=== PATIENT | female | born 1985 | race Caucasian/White ===

== ENCOUNTER 2017-10-26 06:52 | Inpatient (IN) | payer BC, MEDICAID ==
[2017-10-26] MEDS ORDERED: Albuterol-Ipratrop 3 mg / 0.5 (3 ml) UD ONE (07:36)
[2017-10-26] MEDS ORDERED: Albuterol-Ipratrop 3 mg / 0.5 (3 ml) UD INH STA (07:37)
[2017-10-26] MEDS ORDERED: Sodium Chloride 0.9% 1,000 ML IV STA (07:38)
--- NOTE | 2017-10-26 07:39 | ED PDOC ---
HPI: CCC, URI, Sore Throat Time Seen by Provider: 10/26/17 07:07 Chief Complaint (Nursing): Cough, Cold, Congestion Chief Complaint (Provider): Cough, cold, congestion History Per: Patient History/Exam Limitations: no limitations Onset/Duration Of Symptoms: Days (x2) Current Symptoms Are (Timing): Still Present Location Of Pain: Headache Associated Symptoms: Fever, Cough, Other (headache, body aches, dizziness) Ear Symptoms: Bilateral: None Additional Complaint(s): Marion Denise is a 32 year old female, with a past medical history of asthma and hypertension, who presents to the emergency department complaining of fever, cough, headache, body aches and dizziness onset for x2 days. She had a Tmax of 100.5. Patient took motrin last night. She denies any vomiting, diarrhea or other medical complaints. PMD: None provided. Past Medical History Reviewed: Historical Data, Nursing Documentation, Vital Signs Vital Signs: Last Vital Signs Temp 99.7 F H 10/26/17 10:24 Pulse 107 H 10/26/17 10:24 Resp 19 10/26/17 10:24 BP 130/90 10/26/17 10:24 Pulse Ox 89 L 10/26/17 11:48 - Medical History PMH: Asthma, HTN (no longer on meds) Denies: Chronic Kidney Disease - Surgical History Surgical History: No Surg Hx - Family History Family History: States: Diabetes - Social History Current smoker - smoking cessation education provided: No Alcohol: None Drugs: Denies - Immunization History Hx Tetanus Toxoid Vaccination: No Hx Influenza Vaccination: No Hx Pneumococcal Vaccination: No - Home Medications Home Medications: Ambulatory Orders Medication Instructions Recorded Albuterol HFA [Ventolin HFA 90 2 puff IH Q6H PRN 10/26/17 mcg/actuation (8 g)] Mometasone/Formoterol [Dulera 200 2 puff IH Q12H 10/26/17 Mcg/5 Mcg Inhaler] guaiFENesin/Dextromethorphan 10 ml PO Q6H PRN 10/26/17 [Robitussin DM] - Allergies Allergies/Adverse Reactions: Allergies Allergy/AdvReac Type Severity Reaction Status Date / Time moxifloxacin HCl Allergy Mild RASH Verified 12/28/15 11:04 [From Avelox] Review of Systems ROS Statement: Except As Marked, All Systems Reviewed And Found Negative Constitutional: Positive for: Fever, Other (body aches) Respiratory: Positive for: Cough Neurological: Positive for: Headache, Dizziness Physical Exam - Reviewed Nursing Documentation Reviewed: Yes Vital Signs Reviewed: Yes - Physical Exam Appears: Positive for: Non-toxic, No Acute Distress Head Exam: Positive for: ATRAUMATIC, NORMAL INSPECTION, NORMOCEPHALIC Skin: Positive for: Normal Color, Warm, Dry Eye Exam: Positive for: Normal appearance, EOMI, PERRL ENT: Positive for: Normal ENT Inspection Neck: Positive for: Painless ROM, Supple Cardiovascular/Chest: Positive for: Regular Rate, Rhythm. Negative for: Murmur Respiratory: Positive for: Normal Breath Sounds. Negative for: Respiratory Distress Gastrointestinal/Abdominal: Positive for: Normal Exam, Soft. Negative for: Tenderness, Guarding, Rebound Back: Positive for: Normal Inspection. Negative for: L CVA Tenderness, R CVA Tenderness, Vertebral Tenderness Extremity: Positive for: Normal ROM. Negative for: Tenderness, Deformity, Swelling Neurologic/Psych: Positive for: Alert, Oriented - Laboratory Results Result Diagrams: 10/26/17 07:50 10/26/17 07:50 - ECG O2 Sat by Pulse Oximetry: 89 (RA) Pulse Ox Interpretation: Abnormal Medical Decision Making Medical Decision Making: Initial Impression: Pleuritic chest pain Initial Plan: --VBG Shock Panel --EKG --CMP --Urine --Urine dipstick --CBC w/ differential --Chest two views (PA/LAT) [RAD] --Duoneb 3 mg/0.5 mg 3 ml INH --Sodium Chloride 1,000 ml IV 1,000 mls/hr --SOLU-medrol 125mg IVP --Tamiflu cap 75 mg PO --Blood culture --Influenza A B --Urinalysis --reevaluation 09:51 CXR FINDINGS: LUNGS: Minor curvilinear atelectasis seen in the right anterior upper lobe PLEURA: No significant pleural effusion identified. No pneumothorax apparent. CARDIOVASCULAR: Normal. OSSEOUS STRUCTURES: No significant abnormalities. VISUALIZED UPPER ABDOMEN: Normal. OTHER FINDINGS: None. IMPRESSION: Minor curvilinear atelectasis in the right anterior upper lung field 11:35 O2 sat 90% RA, CT chest ordered. Scribe Attestation: Documented by Parker Love, acting as a scribe for Parris Rai MD Provider Scribe Attestation: All medical record entries made by the Scribe were at my direction and personally dictated by me. I have reviewed the chart and agree that the record accurately reflects my personal performance of the history, physical exam, medical decision making, and the department course for this patient. I have also personally directed, reviewed, and agree with the discharge instructions and disposition. Disposition - Clinical Impression Clinical Impression: Pneumonitis, Hypoxemia - Patient ED Disposition Is Patient to be Admitted: Yes - Disposition Referrals: Ryan Ayala MD [Primary Care Provider] - Disposition Time: 14:17 Condition: STABLE Forms: [employer] (Slovak) - Pt Status Changed To: Hospital Disposition Of: Inpatient - Admit Certification Admit to Inpatient:: After my assessment, the patient will require hospitalization for at least two midnights. This is because of the severity of symptoms shown, intensity of services needed, and/or the medical risk in this patient being treated as an outpatient. - POA Present On Arrival: None
[2017-10-26 08:17] LABS: VENOUS BLOOD GAS BASE EXCESS 3.6 mmol/L (0.0-2.0); VENOUS BLOOD GAS PCO2 63 mmHg (40-60); VENOUS BLOOD GAS PO2 27 mm/Hg (30-55); VENOUS BLOOD PH 7.31 (7.32-7.43)
[2017-10-26 08:25] LABS: BASO % 0.2 % (0.0-2.0); EOS # 0.1 K/uL (0.0-0.7); EOS % 1.7 % (0.0-4.0); LYMPH # 0.8 K/uL (1.0-4.3); LYMPH % 17.3 % (20.0-40.0); MEAN CELL VOLUME 87.7 fl (81.0-99.0); MEAN CORPUSCULAR HEMOGLOBIN 29.8 pg (27.0-31.0); MEAN PLATELET VOLUME 9.5 fl (7.2-11.7); MONO # 0.4 K/uL (0.0-0.8); MONO % 7.8 % (0.0-10.0); NEUT # 3.5 K/uL (1.8-7.0); NRBC % 0.1 % (0.0-0.0); RBC 5.04 Mil/uL (3.80-5.20); RED CELL DISTRIBUTION WIDTH 14.4 % (11.5-14.5); WHITE BLOOD COUNT 4.8 K/uL (4.8-10.8)
[2017-10-26 08:28] LABS: SQUAMOUS EPITHIAL 7 /hpf (0-5); URINE BACTERIA RARE (<OCC); URINE BILIRUBIN NEGATIVE (NEGATIVE); URINE BLOOD NEGATIVE (NEGATIVE); URINE CLARITY CLOUDY (Clear); URINE COLOR YELLOW (YELLOW); URINE GLUCOSE (UA) NEG (Normal); URINE HYALINE CAST 0-2 /hpf (0-2); URINE LEUKOCYTE ESTERASE NEG Leu/uL (Negative); URINE NITRATE NEGATIVE (NEGATIVE); URINE PROTEIN 30 mg/dL (NEGATIVE); URINE UROBILINOGEN 0.2-1.0 mg/dL (0.2-1.0)
[2017-10-26 08:38] LABS: ALB/GLOB RATIO 1.2 (1.0-2.1); ALBUMIN 4.4 g/dL (3.5-5.0); ALT/SGPT 79 U/L (9-52); AST/SGOT 58 U/L (14-36); BLOOD UREA NITROGEN 13 mg/dl (7-17); CALCIUM 9.1 mg/dL (8.4-10.2); GFR AFRICAN-AMERICAN > 60; GFR NON-AFRICAN AMERICAN > 60
--- NOTE | 2017-10-26 09:53 | RAD ---
HISTORY: Cough, fever COMPARISON: Comparison chest 12/28/2015 TECHNIQUE: Chest PA and lateral FINDINGS: LUNGS: Minor curvilinear atelectasis seen in the right anterior upper lobe PLEURA: No significant pleural effusion identified. No pneumothorax apparent. CARDIOVASCULAR: Normal. OSSEOUS STRUCTURES: No significant abnormalities. VISUALIZED UPPER ABDOMEN: Normal. OTHER FINDINGS: None. IMPRESSION: Minor curvilinear atelectasis in the right anterior upper lung field
--- NOTE | 2017-10-26 10:49 | CARD ---
APPROVED REPORT EKG Measurement Heart [id number] <Conclusion> Sinus tachycardia Possible Left atrial enlargement Borderline ECG
[2017-10-26] MEDS ORDERED: Iodixanol 320 MG/ML 100 ML BOTTLE IV ONE (12:46)
[2017-10-26] MEDS ORDERED: Sodium Chloride 0.9% 50 ML IV ONE (12:46)
--- NOTE | 2017-10-26 13:58 | CT ---
PROCEDURE: CT Chest with contrast (Pulmonary Angiogram) HISTORY: SOB, hypoxic COMPARISON: None available. TECHNIQUE: Axial computed tomography images were obtained of the chest in the pulmonary arterial phase of enhancement. Coronal and sagittal reformatted images were created and reviewed. Intravenous contrast dose: 95 cc Visipaque 320 contrast material. Radiation dose: Total exam DLP = 478.41 mGy-cm. This CT exam was performed using one or more of the following dose reduction techniques: Automated exposure control, adjustment of the mA and/or kV according to patient size, and/or use of iterative reconstruction technique. FINDINGS: PULMONARY ARTERIES: Suboptimal poor opacification of the pulmonary arteries. . The visualized portions of the pulmonary trunk, right and left main and lobar branches of the pulmonary arteries appear relatively well opacified with no definitive large filling defects seen to suggest acute central pulmonary embolus. The segmental and subsegmental branches of the pulmonary arteries are not well delineated on this exam though again no gross large filling defects are identified. Pulmonary trunk measures approximately 2.2 cm. AORTA: No acute findings. No thoracic aortic aneurysm. Ascending thoracic aorta measures approximately 2.88 cm and descending thoracic aorta measures approximately 2.1 cm. LUNGS: Linear atelectasis/scarring seen in the right middle lobe region as well as several locations upper lobes right greater than left and left lung base. . . In addition, there are patchy ground-glass opacities seen in the right upper and lower lobes as well possibly representing areas of pneumonitis . Central airways are midline and patent. No large central endoluminal lesions. PLEURAL SPACES: Unremarkable. No effusion or pneumothorax HEART: Heart size is within range of normal. No significant pericardial effusion. LYMPH NODES: There may be localized fat and/or lymph node right hilar region. . Questionable prominent subcarinal lymph node is well. BONES, CHEST WALL: Very minor multilevel degenerative spondylosis of the thoracic spine. No acute compression fractures no retropulsed fragments. OTHER FINDINGS: Unremarkable. IMPRESSION: Limited study demonstrating no evidence of central pulmonary embolus. There are linear areas of atelectasis and or scarring in the middle lobe as well as several locations of the upper lobes right greater than left lobe and left lung base. . There are scattered vague patchy ground-glass opacity seen in the right upper lower lobes possibly representing pneumonitis.
[2017-10-26] MEDS ORDERED: Albuterol HFA 90 mcg/actuation (8 g) IH PRN (22:16)
[2017-10-26] MEDS ORDERED: Patient's Own Med (Mometasone/Formoterol [Dulera 200 Mcg/5 Mcg Inhaler] 2 PUFF) IH SCH (22:30)
[2017-10-26] MEDS: Albuterol-Ipratrop 3 mg / 0.5 (3 ml) UD INH SCH (23:29)
[2017-10-26] MEDS: guaiFENesin DM 200 mg-20 mg/10 ml UD PO PRN (23:49)
[2017-10-26] MEDS: Fluticasone-Salmeterol 500-50mcg Diskus IH SCH (23:50)
[2017-10-26] MEDS: Azithromycin 500 MG in Sodium Chloride 0.9% 250 ML IVPB SCH (23:51)
[2017-10-27] MEDS: cefTRIAXone 2 GM in Sodium Chloride 0.9% 100 ML IVPB SCH ×2 (00:58→08:48)
[2017-10-27] MEDS: Albuterol-Ipratrop 3 mg / 0.5 (3 ml) UD INH SCH ×4 (01:03→19:11)
[2017-10-27 02:09] VITALS: BMI 49.2
[2017-10-27 06:09] LABS: HEMOGLOBIN 13.9 g/dL (12.0-16.0); MEAN CELL VOLUME 88.9 fl (81.0-99.0); MEAN CORPUSCULAR HEMOGLOBIN 29.3 pg (27.0-31.0); RBC 4.73 Mil/uL (3.80-5.20); RED CELL DISTRIBUTION WIDTH 14.8 % (11.5-14.5); WHITE BLOOD COUNT 6.8 K/uL (4.8-10.8)
[2017-10-27 06:29] LABS: ALB/GLOB RATIO 1.2 (1.0-2.1); ALBUMIN 4.3 g/dL (3.5-5.0); ALT/SGPT 55 U/L (9-52); AST/SGOT 41 U/L (14-36); BLOOD UREA NITROGEN 11 mg/dl (7-17); GFR AFRICAN-AMERICAN > 60; GFR NON-AFRICAN AMERICAN > 60
[2017-10-27] MEDS: Fluticasone-Salmeterol 500-50mcg Diskus IH SCH ×2 (08:47→20:40)
[2017-10-27] MEDS: guaiFENesin DM 200 mg-20 mg/10 ml UD PO PRN (08:47)
--- NOTE | 2017-10-27 09:47 | CP.PCM.HP ---
<Thomas Carrasco - Last Filed: 10/27/17 15:16> History of Present Illness - History of Present Illness History of Present Illness: PMD Dr Ayala Hx taken from patient 32 year old female, with a past medical history of asthma and hypertension, who presents to the emergency department complaining of fever, cough, headache, body aches and dizziness onset for x3 days. She had a Tmax of 100.5, 2 days ago. Patient took motrin2 nights ago. She denies any vomiting, diarrhea or other medical complaints. As per patient she hasnt been taking asthma meds as prescribed due to insurance issues. Hasnt been on any HTN meds for many years. PMHx: Asthma, HTN SxHx: denies SHx: Tobacco occasionally, Etoh socially. Present on Admission - Present on Admission Any Indicators Present on Admission: No Review of Systems - Review of Systems All systems: reviewed and no additional remarkable complaints except - Constitutional Constitutional: Anorexia, Fever, Malaise - Respiratory Respiratory: Cough (dry) Past Patient History - Past Medical History & Family History Past Medical History?: Yes - Past Social History Smoking Status: Light Smoker < 10 Cigarettes Daily - CARDIAC Hx Cardiac Disorders: Yes Hx Hypertension: Yes - PULMONARY Hx Respiratory Disorders: Yes Hx Asthma: Yes - NEUROLOGICAL Hx Neurological Disorder: No - HEENT Hx HEENT Problems: No - RENAL Hx Chronic Kidney Disease: No - ENDOCRINE/METABOLIC Hx Endocrine Disorders: No - HEMATOLOGICAL/ONCOLOGICAL Hx Blood Disorders: No - INTEGUMENTARY Hx Dermatological Problems: No - MUSCULOSKELETAL/RHEUMATOLOGICAL Hx Falls: No - GASTROINTESTINAL Hx Gastrointestinal Disorders: No - GENITOURINARY/GYNECOLOGICAL Hx Genitourinary Disorders: No - PSYCHIATRIC Hx Substance Use: No - SURGICAL HISTORY Hx Surgeries: No - ANESTHESIA Hx Anesthesia: No Meds Allergies/Adverse Reactions: Allergies Allergy/AdvReac Type Severity Reaction Status Date / Time moxifloxacin HCl Allergy Mild RASH Verified 12/28/15 11:04 [From Avelox] Physical Exam - Constitutional Appears: Non-toxic, No Acute Distress, Other Additional comments: Obese - Eye Exam Eye Exam: EOMI, PERRL - ENT Exam ENT Exam: Mucous Membranes Moist - Respiratory Exam Respiratory Exam: Decreased Breath Sounds (Slight B/L), Wheezes (Scattered exp.) , NORMAL BREATHING PATTERN. absent: Rales - Cardiovascular Exam Cardiovascular Exam: REGULAR RHYTHM, +S1, +S2. absent: Gallop - GI/Abdominal Exam GI & Abdominal Exam: Normal Bowel Sounds, Soft. absent: Rebound, Tenderness - Extremities Exam Extremities exam: Positive for: normal capillary refill. Negative for: calf tenderness - Neurological Exam Neurological exam: Alert, Normal Gait, Oriented x3 - Psychiatric Exam Psychiatric exam: Normal Affect, Normal Mood - Skin Skin Exam: Normal Color, Warm Results - Vital Signs Recent Vital Signs: Last Vital Signs Temp 98.2 F 10/27/17 08:00 Pulse 81 10/27/17 08:00 Resp 18 10/27/17 08:00 BP 143/77 10/27/17 08:00 Pulse Ox 93 L 10/27/17 08:00 - Labs Result Diagrams: 10/27/17 05:20 10/27/17 05:20 Labs: Laboratory Results - last 24 hr 10/26/17 10/27/17 10/27/17 15:50 05:20 05:20 WBC 6.8 RBC 4.73 Hgb 13.9 Hct 42.0 MCV 88.9 MCH 29.3 MCHC 33.0 RDW 14.8 H Plt Count 217 Sodium 146 Potassium 3.9 Chloride 103 Carbon Dioxide 28 Anion Gap 19 BUN 11 Creatinine 0.5 L Est GFR ( Amer) > 60 Est GFR (Non-Af Amer) > 60 Random Glucose 127 H Calcium 9.0 Total Bilirubin 0.3 AST 41 H D ALT 55 H D Alkaline Phosphatase 53 Total Protein 7.8 Albumin 4.3 Globulin 3.5 Albumin/Globulin Ratio 1.2 Influenza Typ A,B (EIA) Negative for flu a/b Assessment & Plan - Assessment and Plan (Free Text) Assessment: 32 y/o F admitted with asthma exacerbation and pneumonitis CAP suspected Fever, cough, weakness Imaging suggest pneumonitis IV Rocephin and Zithromax O2sat 93L Poss DC tomorrow if c/w improvement with PO Abx Asthma exacerbation Nebs PRN O2 PRN ABG shows compensated hypoxemia <Ayala,Ryan K - Last Filed: 10/27/17 16:55> Results - Vital Signs Recent Vital Signs: Last Vital Signs Temp 97.0 F L 10/27/17 16:01 Pulse 90 10/27/17 16:01 Resp 20 10/27/17 16:01 BP 129/79 10/27/17 16:01 Pulse Ox 94 L 10/27/17 16:01 - Labs Result Diagrams: 10/27/17 05:20 10/27/17 05:20 Labs: Laboratory Results - last 24 hr 10/27/17 10/27/17 10/27/17 05:20 05:20 10:30 WBC 6.8 RBC 4.73 Hgb 13.9 Hct 42.0 MCV 88.9 MCH 29.3 MCHC 33.0 RDW 14.8 H Plt Count 217 pCO2 50 H pO2 83 HCO3 28.8 H ABG pH 7.40 ABG Total CO2 32.5 H ABG O2 Saturation 98.8 H ABG O2 Content 19.0 ABG Base Excess 5.0 H ABG Hemoglobin 14.1 ABG Carboxyhemoglobin 2.1 H POC ABG HHb (Measured) 1.2 ABG Methemoglobin 1.2 ABG O2 Capacity 19.2 Rashaad Test Yes A-a O2 Difference 68.0 Hgb O2 Saturation 95.4 FiO2 30.0 Blood Gas Comments 2l,/m nc,rt rad Crit Value Read Back N Sodium 146 Potassium 3.9 Chloride 103 Carbon Dioxide 28 Anion Gap 19 BUN 11 Creatinine 0.5 L Est GFR ( Amer) > 60 Est GFR (Non-Af Amer) > 60 Random Glucose 127 H Calcium 9.0 Total Bilirubin 0.3 AST 41 H D ALT 55 H D Alkaline Phosphatase 53 Total Protein 7.8 Albumin 4.3 Globulin 3.5 Albumin/Globulin Ratio 1.2 Assessment & Plan - Assessment and Plan (Free Text) Assessment: Patient was personally seen and examined by me in rounds with residents. Available labs and diagnostic data reviewed. Case, Patient's condition and management plan discussed with residents in rounds. Agree with resident's documentation. Plan: As ordered. Ryan Ayala MD
[2017-10-27] MEDS: Azithromycin 500 MG in Sodium Chloride 0.9% 250 ML IVPB SCH (10:28)
[2017-10-27 11:32] LABS: ABG ALLEN TEST YES; ARTERIAL BLOOD GAS HCO3 28.8 mmol/L (21-28); ARTERIAL BLOOD GAS HEMOGLOBIN 14.1 g/dL (11.7-17.4); ARTERIAL BLOOD GAS O2 CAPACITY 19.2 mL/dL (16-24); ARTERIAL BLOOD GAS O2 SAT 98.8 % (95-98); ARTERIAL BLOOD GAS PCO2 50 mm/Hg (35-45); ARTERIAL BLOOD GAS PO2 83 mm/Hg (80-100); ARTERIAL BLOOD GAS TCO2 32.5 mmol/L (22-28)
[2017-10-27] MEDS: Enoxaparin 40 mg Syringe SC SCH (17:23)
[2017-10-27] MEDS ORDERED: Albuterol-Ipratrop 3 mg / 0.5 (3 ml) UD INH SCH (22:24)
[2017-10-28] MEDS: Albuterol-Ipratrop 3 mg / 0.5 (3 ml) UD INH SCH ×4 (01:02→20:41)
[2017-10-28] MEDS: Fluticasone-Salmeterol 500-50mcg Diskus IH SCH ×2 (09:16→21:52)
[2017-10-28] MEDS: Enoxaparin 40 mg Syringe SC SCH (09:16)
[2017-10-28] MEDS: cefTRIAXone 2 GM in Sodium Chloride 0.9% 100 ML IVPB SCH (09:16)
[2017-10-28] MEDS: Azithromycin 500 MG in Sodium Chloride 0.9% 250 ML IVPB SCH (09:48)
[2017-10-29 00:22] VITALS: TEMP 98.2
[2017-10-29] MEDS: Albuterol-Ipratrop 3 mg / 0.5 (3 ml) UD INH SCH ×2 (01:00→08:01)
[2017-10-29 08:10] VITALS: BP 117/71; PULSE 103; RESP 18; O2SAT 95
[2017-10-29] MEDS: cefTRIAXone 2 GM in Sodium Chloride 0.9% 100 ML IVPB SCH (09:17)
[2017-10-29] MEDS: Azithromycin 500 MG in Sodium Chloride 0.9% 250 ML IVPB SCH (09:17)
[2017-10-29] MEDS: Enoxaparin 40 mg Syringe SC SCH (09:18)
[2017-10-29] MEDS: Fluticasone-Salmeterol 500-50mcg Diskus IH SCH (09:18)
--- NOTE | 2017-10-29 09:28 | PN ---
DATE: 10/29/2017 SUBJECTIVE: The patient is seen and examined. Interim events noted. The patient feels much better. Cough, chest pain, and shortness of breath resolved. The patient does generalized weakness, , but no fever. PHYSICAL EXAMINATION: GENERAL: The patient is in no acute distress. VITAL SIGNS: Stable. HEART: S1 and S2, normal and regular. LUNGS: Good bilateral air exchange. ABDOMEN: Soft and nontender. EXTREMITIES: No edema. No calf swelling. No tenderness. No acute ischemia. CENTRAL NERVOUS SYSTEM: Essentially unchanged. DIAGNOSTIC DATA: Available diagnostic data reviewed. Telemetry monitoring does not reveal any significant arrhythmias. PLAN: Overall, the patient is clinically stable and improved. We will discharge the patient home today. Case and plan discussed with the patient. Plan as ordered. Ryan Ayala MD
[2017-10-29] MEDS ORDERED: Pneumococcal 23-Valent Vaccine IM ONE (11:04)
[2017-10-29] MEDS ORDERED: Influenza Vaccine 18yr & older 0.5 ML/45 MCG SYR IM ONE (11:04)
--- NOTE | 2017-10-30 10:04 | PN ---
DATE: 10/28/2017 SUBJECTIVE: The patient is seen and examined. Interim events noted. The patient feels little better. No chest pain. No shortness of breath. PHYSICAL EXAMINATION GENERAL: The patient is in no acute distress. VITAL SIGNS: Stable. HEART: S1 and S2, normal and regular. LUNGS: Good bilateral air exchange. Occasional crepitation. ABDOMEN: Soft and nontender. No organomegaly. No fluid. Bowel sounds are normal. EXTREMITIES: No edema. No calf swelling. No tenderness. No acute ischemia. CENTRAL NERVOUS SYSTEM: Exam is essentially unchanged. DIAGNOSTIC DATA: Available diagnostic data reviewed. Telemetry monitoring does not show significant arrhythmias. IMPRESSION AND PLAN: Overall, the patient's general medical condition is slowly improving. Plan as ordered. Ryan Ayala MD
== END 2017-10-29 13:12 | disposition home or self-care (01) | DRG 194 ==
LOC: H.ER 06:52 → H.ERHOLD 14:16 → H.TEL 21:35
PROVIDERS: ADMIT Internal Medicine; ATTEND Internal Medicine
PROC: 3E0234Z Introduction of Serum, Toxoid and Vaccine into Muscle, Percutaneous Approach (ICD-10-PCS; principal; 2017-10-29)
DX: J18.9 Pneumonia, unspecified organism (principal); J45.901 Unspecified asthma with (acute) exacerbation; E11.9 Type 2 diabetes mellitus without complications; I10 Essential (primary) hypertension; R09.02 Hypoxemia; Z87.891 Personal history of nicotine dependence; J02.9 Acute pharyngitis, unspecified; Z23 Encounter for immunization

== ENCOUNTER 2018-07-17 09:59 | Emergency (ER) | payer BC, OTHER ==
[2018-07-17 09:59] VITALS: BMI 49.2
[2018-07-17 10:08] VITALS: TEMP 98.7
[2018-07-17] MEDS ORDERED: Sodium Chloride 0.9% 1,000 ML IV STA (11:10)
--- NOTE | 2018-07-17 11:35 | ED PDOC ---
HPI: Back Time Seen by Provider: 07/17/18 10:50 Chief Complaint (Nursing): Back Pain Chief Complaint (Provider): Back Pain History Per: Patient History/Exam Limitations: no limitations Onset/Duration Of Symptoms: Days (x1) Current Symptoms Are (Timing): Still Present Additional Complaint(s): 32 year old female with pmHx of kidney stones, presents to ED with a complaint of right-sided back pain and chills since this morning. She denies any dysuria, hematuria, or fever. Patient had 1 episode of vomiting while in ED and notes she is due for her menses soon. PCP: Dr. Ryan Ayala Past Medical History Reviewed: Historical Data, Nursing Documentation, Vital Signs Vital Signs: Last Vital Signs Temp 98.7 F 07/17/18 10:08 Pulse 70 07/17/18 10:08 Resp 19 07/17/18 10:08 BP 145/78 07/17/18 10:08 Pulse Ox 97 07/17/18 10:08 - Medical History PMH: Asthma, HTN Denies: Chronic Kidney Disease - Family History Family History: States: Diabetes - Immunization History Hx Tetanus Toxoid Vaccination: No Hx Influenza Vaccination: No Hx Pneumococcal Vaccination: No - Home Medications Home Medications: Ambulatory Orders Medication Instructions Recorded Albuterol HFA [Ventolin HFA 90 2 puff IH Q6H PRN 10/26/17 mcg/actuation (8 g)] Mometasone/Formoterol [Dulera 200 2 puff IH Q12H 10/26/17 Mcg/5 Mcg Inhaler] guaiFENesin/Dextromethorphan 10 ml PO Q6H PRN 10/26/17 [Robitussin DM] Cefuroxime Axetil [Cefuroxime] 500 mg PO BID #14 tablet 07/17/18 Tamsulosin [Flomax] 0.4 mg PO DAILY #14 cap 07/17/18 oxyCODONE/Acetaminophen [Percocet 1 ea PO Q6 PRN #15 tab 07/17/18 5/325 mg Tab] - Allergies Allergies/Adverse Reactions: Allergies Allergy/AdvReac Type Severity Reaction Status Date / Time moxifloxacin HCl Allergy Mild RASH Verified 07/17/18 10:28 [From Avelox] Review of Systems ROS Statement: Except As Marked, All Systems Reviewed And Found Negative Constitutional: Positive for: Chills. Negative for: Fever Gastrointestinal: Positive for: Vomiting (x1) Genitourinary Female: Negative for: Dysuria, Hematuria Musculoskeletal: Positive for: Back Pain (right-sided) Physical Exam - Reviewed Nursing Documentation Reviewed: Yes Vital Signs Reviewed: Yes - Physical Exam Appears: Positive for: Non-toxic, Uncomfortable Head Exam: Positive for: ATRAUMATIC, NORMAL INSPECTION, NORMOCEPHALIC Skin: Positive for: Normal Color Eye Exam: Positive for: Normal appearance ENT: Positive for: Normal ENT Inspection Neck: Positive for: Normal Cardiovascular/Chest: Positive for: Regular Rate, Rhythm Respiratory: Positive for: Normal Breath Sounds. Negative for: Respiratory Distress Gastrointestinal/Abdominal: Positive for: Normal Exam, Soft. Negative for: Tenderness Back: Positive for: Normal Inspection. Negative for: L CVA Tenderness, R CVA Tenderness, Muscle Spasm Extremity: Positive for: Normal ROM (upper/lower) Neurologic/Psych: Positive for: Alert, Oriented - Laboratory Results Result Diagrams: 07/17/18 11:25 07/17/18 11:25 Urine POC: Negative - ECG O2 Sat by Pulse Oximetry: 97 (RA) Pulse Ox Interpretation: Normal - Progress Re-evaluation Time: 15:30 Condition: Re-examined, Improved Medical Decision Making Medical Decision Making: Initial Impression: Right flank pain Differential Diagnosis: renal colic, nephrolithiasis, UTI, musculoskeletal pain Initial Plan: * CT ABD/pelvis * Labs * IV fluids * Toradol 30mg IVP Time: 13:40 CT Abd/Pelvis FINDINGS: LOWER THORAX: The visualized lungs are clear. LIVER: Mild hepatomegaly. No intrahepatic ductal dilatation. GALLBLADDER AND BILE DUCTS: There are multiple gallstones. No biliary dilatation PANCREAS: Normal in size. No ductal dilatation. SPLEEN: There is mild splenomegaly. ADRENALS: Normal in size. No discrete nodule. KIDNEYS AND URETERS: The right kidney is malrotated. There is a 4 mm stone at the right UV junction. There is mild hydronephrosis, edema and enlargement of the right kidney and significant perinephric inflammatory changes. The left kidney is normal in size. There is a 5 mm nonobstructing stone in the interpolar region and 7 mm nonobstructing stone in the lower pole. No hydronephrosis. VASCULATURE: No aortic aneurysm. No aortic atherosclerotic calcification or mural plaque present. BOWEL: The small bowel loops are normal in caliber. The colon is normal in size. No bowel dilatation or wall thickening. No bowel obstruction. APPENDIX: Normal appendix. PERITONEUM: No free fluid. No free air. LYMPH NODES: No enlarged lymph nodes. BLADDER: Well distended and grossly normal in appearance. REPRODUCTIVE: The uterus is normal in size. There is a 3.2 x 2.9 cm simple cyst in the left ovary. BONES: No acute fracture. Within normal limits for the patient's age. OTHER FINDINGS: None. IMPRESSION: 1. 4 mm stone at the right UV junction, mild right hydronephrosis, edema and enlargement in the right kidney and significant perinephric inflammatory changes. 2. 5 mm nonobstructing stone in the interpolar region of the left kidney and 7 mm nonobstructing stone in the left lower pole. 3. 3.2 cm simple cyst in the left ovary. 4. Cholelithiasis. 5. Mild hepatosplenomegaly. Time: 14:17 At this time patient is still complaining of pain, ordered morphine to manage symptoms. Scribe Attestation: Documented by Coby Fuller, acting as a scribe for Chalo Velez MD. Provider Scribe Attestation: All medical record entries made by the Scribe were at my direction and personally dictated by me. I have reviewed the chart and agree that the record accurately reflects my personal performance of the history, physical exam, medical decision making, and the department course for this patient. I have also personally directed, reviewed, and agree with the discharge instructions and disposition. Disposition - Clinical Impression Clinical Impression: Renal colic on right side, Ureteral stone - Patient ED Disposition Is Patient to be Admitted: No Doctor Will See Patient In The: Office Counseled Patient/Family Regarding: Studies Performed, Diagnosis, Need For Followup - Disposition Referrals: Chin Sullivan MD [Medical Doctor] - Disposition: Routine/Home Disposition Time: 15:47 Condition: GOOD Additional Instructions: JACKIE CARREON, thank you for letting us take care of you today. Your provider was Chalo Velez MD and you were treated for BACK PAIN. The emergency medical care you received today was directed at your acute symptoms. If you were prescr ibed any medication, please fill it and take as directed. It may take several days for your symptoms to resolve. Return to the Emergency Department if your symptoms worsen, do not improve, or if you have any other problems. Please contact your doctor or call one of the physicians/clinics you have been referred to that are listed on the Patient Visit Information form that is included in your discharge packet. Bring any paperwork you were given at discharge with you along with any medications you are taking to your follow up visit. Our treatment cannot replace ongoing medical care by a primary care provider outside of the emergency department. Thank you for allowing the [facility] team to be part of your care today. If you had an X-Ray or CT scan: A Radiologist will review the ED reading if any change in treatment is needed we will contact you. If you had a blood, urine, or wound culture: It will take several days for the results, if any change in treatment is needed we will contact you. If you had an STI test: It will take 48 hours for the results. Please call after 1 week if you have not heard back. Prescriptions: Cefuroxime Axetil [Cefuroxime] 500 mg PO BID #14 tablet oxyCODONE/Acetaminophen [Percocet 5/325 mg Tab] 1 ea PO Q6 PRN #15 tab PRN Reason: Pain, Severe (8-10) Tamsulosin [Flomax] 0.4 mg PO DAILY #14 cap Instructions: Renal Colic (DC)
[2018-07-17 11:36] LABS: BASO # 0.1 K/uL (0.0-0.2); BASO % 0.6 % (0.0-2.0); EOS # 0.1 K/uL (0.0-0.7); EOS % 1.2 % (0.0-4.0); HEMOGLOBIN 14.2 g/dL (12.0-16.0); LYMPH # 1.7 K/uL (1.0-4.3); LYMPH % 16.1 % (20.0-40.0); MEAN CELL VOLUME 90.1 fl (81.0-99.0); MEAN CORPUSCULAR HEMOGLOBIN 29.9 pg (27.0-31.0); MEAN CORPUSCULAR HGB CONC 33.1 g/dL (33.0-37.0); MEAN PLATELET VOLUME 9.3 fl (7.2-11.7); MONO # 0.4 K/uL (0.0-0.8); MONO % 4.1 % (0.0-10.0); NEUT # 8.2 K/uL (1.8-7.0); RBC 4.76 Mil/uL (3.80-5.20); RED CELL DISTRIBUTION WIDTH 13.8 % (11.5-14.5); WHITE BLOOD COUNT 10.5 K/uL (4.8-10.8)
[2018-07-17 11:44] LABS: BLOOD UREA NITROGEN 12 mg/dl (7-17); CALCIUM 9.2 mg/dL (8.4-10.2); GFR NON-AFRICAN AMERICAN > 60
[2018-07-17 11:49] LABS: SQUAMOUS EPITHIAL 13 /hpf (0-5); URINE BACTERIA RARE (<OCC); URINE BILIRUBIN NEGATIVE (NEGATIVE); URINE BLOOD LARGE (NEGATIVE); URINE CLARITY CLOUDY (Clear); URINE COLOR YELLOW (YELLOW); URINE GLUCOSE (UA) NEG (Normal); URINE LEUKOCYTE ESTERASE NEG Leu/uL (Negative); URINE PROTEIN 100 mg/dL (NEGATIVE); URINE UROBILINOGEN 0.2-1.0 mg/dL (0.2-1.0)
--- NOTE | 2018-07-17 13:44 | CT ---
Date of service: 07/17/2018 PROCEDURE: CT Abdomen and Pelvis without intravenous contrast HISTORY: Right flank pain COMPARISON: None. TECHNIQUE: CT scan of the abdomen and pelvis was performed without administration of intravenous contrast. Oral contrast was not administered. Coronal and sagittal reformatted images were obtained. . Radiation dose: Total exam DLP = 826.61 mGy-cm. This CT exam was performed using one or more of the following dose reduction techniques: Automated exposure control, adjustment of the mA and/or kV according to patient size, and/or use of iterative reconstruction technique. FINDINGS: LOWER THORAX: The visualized lungs are clear. LIVER: Mild hepatomegaly. No intrahepatic ductal dilatation. GALLBLADDER AND BILE DUCTS: There are multiple gallstones. No biliary dilatation PANCREAS: Normal in size. No ductal dilatation. SPLEEN: There is mild splenomegaly. ADRENALS: Normal in size. No discrete nodule. KIDNEYS AND URETERS: The right kidney is malrotated. There is a 4 mm stone at the right UV junction. There is mild hydronephrosis, edema and enlargement of the right kidney and significant perinephric inflammatory changes. The left kidney is normal in size. There is a 5 mm nonobstructing stone in the interpolar region and 7 mm nonobstructing stone in the lower pole. No hydronephrosis. VASCULATURE: No aortic aneurysm. No aortic atherosclerotic calcification or mural plaque present. BOWEL: The small bowel loops are normal in caliber. The colon is normal in size. No bowel dilatation or wall thickening. No bowel obstruction. APPENDIX: Normal appendix. PERITONEUM: No free fluid. No free air. LYMPH NODES: No enlarged lymph nodes. BLADDER: Well distended and grossly normal in appearance. REPRODUCTIVE: The uterus is normal in size. There is a 3.2 x 2.9 cm simple cyst in the left ovary. BONES: No acute fracture. Within normal limits for the patient's age. OTHER FINDINGS: None. IMPRESSION: 1. 4 mm stone at the right UV junction, mild right hydronephrosis, edema and enlargement in the right kidney and significant perinephric inflammatory changes. 2. 5 mm nonobstructing stone in the interpolar region of the left kidney and 7 mm nonobstructing stone in the left lower pole. 3. 3.2 cm simple cyst in the left ovary. 4. Cholelithiasis. 5. Mild hepatosplenomegaly.
[2018-07-17] MEDS ORDERED: Morphine 4 MG/ML VIAL IVP ONE (14:01)
[2018-07-17] MEDS ORDERED: Oxycodone/Acetaminophen 5/325 mg Tab PO STA (15:57)
[2018-07-17] MEDS ORDERED: cefTRIAXone (Rocephin) 1 gm Inj ONE (16:26)
[2018-07-17] MEDS ORDERED: Oxycodone/Acetaminophen 5/325 mg Tab ONE (16:43)
[2018-07-17 18:33] VITALS: BP 133/62; PULSE 69; RESP 18; O2SAT 99
== END 2018-07-17 18:00 | disposition home or self-care (01) ==
LOC: H.ER 09:59
DX: N20.1 Calculus of ureter (principal)
CPT/HCPCS: 74176; 80048; 81003; 81025; 85025; 96374; 96375; 99283; J0696; J1885; J2270; J7030